=== PATIENT | female | born 1975 | race Caucasian/White ===

== ENCOUNTER 2017-12-13 08:51 | Emergency (ER) | payer BC ==
[~2017-12-13] VITALS: Ht 165.1 cm; Wt 69.8 kg
[2017-12-13 09:02] VITALS: TEMP 36.6
[2017-12-13] MEDS ORDERED: MISCCAP80 PO (09:20)
[2017-12-13] MEDS ORDERED: SYN25 PO (09:20)
[2017-12-13] MEDS ORDERED: CALC-388 PO (09:20)
[2017-12-13] MEDS ORDERED: DICY10CA55 PO (09:20)
[2017-12-13] MEDS ORDERED: VENL150C56 PO (09:20)
[2017-12-13] MEDS ORDERED: CHOL1CAP67 PO (09:20)
[2017-12-13] MEDS ORDERED: DPPI400 (09:20)
[2017-12-13] MEDS ORDERED: FIBE1CHW8 (09:20)
[2017-12-13 09:25] VITALS: O2SAT 99
[2017-12-13 09:39] LABS: BASO % 0.3 %; BASO ABS # 0.02 K/uL (0-0.2); EOS % 1.6 %; HEMATOCRIT 39.9 % (37-47); HEMOGLOBIN 13.8 g/dL (12.0-16.0); IG# 0.01 K/uL (0.00-0.02); LYMPH % 26.4 %; MEAN CELL VOLUME 89.9 fL (80-100); MEAN CORPUSCULAR HEMOGLOBIN 31.1 pg (25-34); MEAN CORPUSCULAR HGB CONC 34.6 g/dl (32-36); MEAN PLATELET VOLUME 9.4 fL (7.4-10.4); MONO % 4.5 %; MONO ABS # 0.29 K/uL (0.11-0.59); NEUT ABS # 4.33 K/uL (1.4-6.5); PLATELET COUNT 227 K/uL (130-400); RED CELL DISTRIBUTION WIDTH CV 12.6 % (11.5-14.5); RED CELL DISTRIBUTION WIDTH SD 41.5 fL (36.4-46.3); WHITE BLOOD COUNT 6.45 K/uL (4.8-10.8)
[2017-12-13 09:57] LABS: ALBUMIN 4.2 gm/dl (3.4-5.0); ALT/SGPT 47 U/L (12-78); AST/SGOT 33 U/L (15-37); BLOOD UREA NITROGEN 12 mg/dl (7-18); CALCIUM 8.4 mg/dl (8.5-10.1); CARBON DIOXIDE 28 mmol/L (21-32); CREATININE 0.95 mg/dl (0.60-1.20); GLUCOSE 99 mg/dl (70-99); POTASSIUM 3.3 mmol/L (3.5-5.1); SODIUM 136 mmol/L (136-145)
[2017-12-13 09:58] LABS: PTT PATIENT 21.4 SECONDS (21.0-31.0)
[2017-12-13 10:08] LABS: ALKALINE PHOSPHATASE 49 U/L (45-117); LIPASE 140 U/L (73-393); TOTAL PROTEIN 7.6 gm/dl (6.4-8.2)
[2017-12-13 10:12] VITALS: Ht 165.1 cm; Wt 69.8 kg
[2017-12-13 13:16] VITALS: BP 116/79; PULSE 77; O2SAT 97
--- NOTE | 2017-12-13 16:25 | EMERGENCY ROOM VISIT NOTE ---
History Report prepared by Samara: Venita Louis Under the Supervision of: Dr. Jasbir Mullen M.D. First contact with patient: 09:16 Chief Complaint: DIZZY Stated Complaint: high/low blood pressure, dizziness, weakness,lowHR Nursing Triage Summary: Pt was at work when she got really dizzy and diaphoretic. Checked BP which was elevated and then really low. Hands and feet are tingly. Dizziness has resolved. No hx vertigo. Thinks it is a reaction to bentyl of which she has taken 4 doses but never experienced this before. History of Present Illness The patient is a 42 year old female who presents to the Emergency Room with complaints of an episode of dizziness [employer]. The patient was standing at work when she suddenly started feeling dizzy. Her blood pressure was high then low. She felt nauseous, diaphoretic, and faint. This lasted for 10 minutes. She has never experienced this before. She reports some tingling in the fingers and toes. She feels normal now besides being fatigued. The patient was started on Bentyl in the past week for ongoing GI issues over the past year. She has been diagnosed with a gluten and dairy sensitivity. She took Bentyl this morning. She did not eat breakfast this morning. She has a minor headache and notes that she was crying. Her blood pressure is typically in the 110s. Pt denies LOC, fevers, chills, visual changes, neck pain, chest pain, breathing difficulties, vomiting, abdominal pain, back pain, melena, hematochezia, urinary symptoms, numbness, weakness, lymphadenopathy, rash, or other complaints. Source of History: patient Onset: [employer] Position: head Quality: other (dizziness) Timing: other (episodic) Associated Symptoms: + diaphoresis, + nausea, + fatigue Note: Pt reports change in blood pressure, feeling faint, tingling in fingers and toes. Review of Systems See HPI for pertinent positives and negatives. A total of ten systems were reviewed and were otherwise negative. Past Medical & Surgical Medical Problems: (1) Hypothyroidism Family History Cancer Diabetes mellitus Heart disease Hypertension Social History Smoking Status: Never Smoker Alcohol Use: other (minimal) Housing Status: lives with family Occupation Status: employed Current/Historical Medications Scheduled Calcium Carbonate-Vitamin D (Calcium + D3 600-200 mg-Unit), 1 TAB PO DAILY Cholecalciferol (Vitamin D-3), 1,000 UNIT PO DAILY Dicyclomine Hcl (Bentyl), 10 MG PO TID Levothyroxine Sodium (Synthroid), 25 MCG PO DAILY Probiotic Product (Probiotic), 1 CAP PO DAILY Venlafaxine Hcl (Effexor Extended Rel), 150 MG PO DAILY Miscellaneous Medications Fiber (Fiber Adult Gummies 2 gm) Medroxyprogesterone Acetate (Depo-Provera) Allergies Coded Allergies: Amoxicillin (Unverified Allergy, Unknown, hives, 12/13/17) Metronidazole (Unverified Allergy, Unknown, unknown, 12/13/17) Acetaminophen (Unverified Adverse Reaction, Unknown, dizzyiness, 12/13/17) Propoxyphene (Unverified Adverse Reaction, Unknown, dizzyiness, 12/13/17) Physical Exam Vital Signs Date Time Temp Pulse Resp B/P (MAP) Pulse Ox O2 Delivery O2 Flow Rate FiO2 12/13/17 13:16 77 15 116/79 97 Room Air 12/13/17 11:51 81 15 116/75 100 Room Air 12/13/17 10:12 60 16 109/57 98 Room Air 88 99/71 74 114/78 12/13/17 09:37 76 12/13/17 09:25 99 Room Air 12/13/17 09:02 36.6 66 18 105/75 99 Room Air Physical Exam GENERAL: Awake, alert, well-appearing, in no distress HENT: Normocephalic, atraumatic. Oropharynx unremarkable. EYES: Normal conjunctiva. Sclera non-icteric. NECK: Supple. No nuchal rigidity. FROM. No masses. RESPIRATORY: Clear to auscultation. No wheezes. No rales. Normal respiratory effort. CARDIAC: Normal rate. Normal rhythm. No murmurs. No rubs. Extremities warm and well perfused. Pulses equal. No JVD. GI: Soft, non-distended. No tenderness to palpation. No rebound or guarding. No masses. RECTAL: Deferred. MUSCULOSKELETAL: Atraumatic. Chest examination reveals no tenderness. The back is symmetrical on inspection without obvious abnormality. There is no CVA tenderness to palpation. No joint edema. LOWER EXTREMITIES: Calves are equal size bilaterally and non-tender. No edema. No discoloration. NEURO: Normal sensorium. No sensory or motor deficits noted. SKIN: No rash or jaundice noted. Medical Decision & Procedures Laboratory Results 12/13/17 09:25 Red Blood Count 4.44, Mean Corpuscular Volume 89.9, Mean Corpuscular Hemoglobin 31.1, Mean Corpuscular Hemoglobin Concent 34.6, Mean Platelet Volume 9.4, Neutrophils (%) (Auto) 67.0, Lymphocytes (%) (Auto) 26.4, Monocytes (%) (Auto) 4.5, Eosinophils (%) (Auto) 1.6, Basophils (%) (Auto) 0.3, Neutrophils # (Auto) 4.33, Lymphocytes # (Auto) 1.70, Monocytes # (Auto) 0.29, Eosinophils # (Auto) 0.10, Basophils # (Auto) 0.02 12/13/17 09:25 Test 12/13/17 09:25 12/13/17 11:57 White Blood Count 6.45 K/uL (4.8-10.8) Red Blood Count 4.44 M/uL (4.2-5.4) Hemoglobin 13.8 g/dL (12.0-16.0) Hematocrit 39.9 % (37-47) Mean Corpuscular Volume 89.9 fL (80-100) Mean Corpuscular Hemoglobin 31.1 pg (25-34) Mean Corpuscular Hemoglobin Concent 34.6 g/dl (32-36) Platelet Count 227 K/uL (130-400) Mean Platelet Volume 9.4 fL (7.4-10.4) Neutrophils (%) (Auto) 67.0 % Lymphocytes (%) (Auto) 26.4 % Monocytes (%) (Auto) 4.5 % Eosinophils (%) (Auto) 1.6 % Basophils (%) (Auto) 0.3 % Neutrophils # (Auto) 4.33 K/uL (1.4-6.5) Lymphocytes # (Auto) 1.70 K/uL (1.2-3.4) Monocytes # (Auto) 0.29 K/uL (0.11-0.59) Eosinophils # (Auto) 0.10 K/uL (0-0.5) Basophils # (Auto) 0.02 K/uL (0-0.2) RDW Standard Deviation 41.5 fL (36.4-46.3) RDW Coefficient of Variation 12.6 % (11.5-14.5) Immature Granulocyte % (Auto) 0.2 % Immature Granulocyte # (Auto) 0.01 K/uL (0.00-0.02) Prothrombin Time 10.9 SECONDS (9.0-12.0) Prothromb Time International Ratio 1.0 (0.9-1.1) Activated Partial Thromboplast Time 21.4 SECONDS (21.0-31.0) Partial Thromboplastin Ratio 0.8 Anion Gap 4.0 mmol/L (3-11) Est Creatinine Clear Calc Drug Dose 74.2 ml/min Estimated GFR () 84.4 Estimated GFR (Non- 72.8 BUN/Creatinine Ratio 12.8 (10-20) Calcium Level 8.4 mg/dl (8.5-10.1) Magnesium Level 2.0 mg/dl (1.8-2.4) Total Bilirubin 0.9 mg/dl (0.2-1) Direct Bilirubin 0.2 mg/dl (0-0.2) Aspartate Amino Transf (AST/SGOT) 33 U/L (15-37) Alanine Aminotransferase (ALT/SGPT) 47 U/L (12-78) Alkaline Phosphatase 49 U/L (45-117) Troponin I < 0.015 ng/ml (0-0.045) Total Protein 7.6 gm/dl (6.4-8.2) Albumin 4.2 gm/dl (3.4-5.0) Lipase 140 U/L (73-393) Thyroid Stimulating Hormone (TSH) 3.220 uIu/ml (0.300-4.500) Human Chorionic Gonadotropin, Qual NEG (NEG) Urine Color YELLOW Urine Appearance CLOUDY (CLEAR) Urine pH 7.0 (4.5-7.5) Urine Specific [place] 1.010 (1.000-1.030) Urine Protein NEG (NEG) Urine Glucose (UA) NEG (NEG) Urine Ketones NEG (NEG) Urine Occult Blood NEG (NEG) Urine Nitrite NEG (NEG) Urine Bilirubin NEG (NEG) Urine Urobilinogen NEG (NEG) Urine Leukocyte Esterase NEG (NEG) Urine WBC (Auto) 1-5 /hpf (0-5) Urine RBC (Auto) 0-4 /hpf (0-4) Urine Hyaline Casts (Auto) 1-5 /lpf (0-5) Urine Epithelial Cells (Auto) >30 /lpf (0-5) Urine Bacteria (Auto) NEG (NEG) Laboratory results reviewed by me ECG Per My Interpretation Indication: syncope (near) Rate (beats per minute): 61 Rhythm: normal sinus Findings: no acute ischemic change, no ectopy, other (normal intervals) ED Course 0958: The patient was evaluated in room B8. A complete history and physical exam was performed. 1250: I reevaluated the patient. Discussed results and discharge instructions: She verbalized understanding and agreement. The patient is ready for discharge. Medical Decision Prior records/ancillary studies reviewed. Triage Nursing notes reviewed and agree them. The patient's history was concerning for dizziness and near sink. Differential diagnosis: Etiologies such as medication side effect, vasovagal event, benign positional vertigo, tumor, infection, hypoglycemia, electrolyte abnormalities, cardiac sources, intracerebral event, toxicologic, neurologic, as well as others were entertained. Physical examination: As above. No pathologic nystagmus. Nonfocal. Benign abdomen. ER treatment provided: No medication given at the patient's symptoms resolved. Oral hydration without difficulty. On reassessment the patient felt well. Diagnostics interpretation by me: ECG: Normal sinus rhythm without ischemic change or evidence of dysrhythmia. The labs revealed a normal CBC and chemistry panel. Urinalysis unremarkable. The patient is doing quite well. She had an episode that lasted about 10 minutes. It sounds consistent with vasovagal type event. She may have had some side effects from her new prescription of Bentyl. I asked for her to refrain from this medication for a few days and then to use it only as needed. If she has recurrent symptoms that she needs to stop and follow-up with GI. She agreed. She felt well. She never had any chest or abdominal pains. By the evaluation outlined above emergent etiologies such as infection, hypoglycemia, electrolyte abnormalities, cardiac sources, intracerebral event, toxicologic, neurologic,as well as others were deemed relatively unlikely. The patient will informed about the findings as listed above. All questions were answered and she will pleased with the treatment. Return instructions were outlined and the patient was discharged in stable condition. Referral: The patient was referred back to her primary care physician for follow-up for a recheck of the current condition. Medication Reconcilliation Current Medication List: was personally reviewed by me Blood Pressure Screening Patient's blood pressure: Normal blood pressure Blood pressure disposition: Did not require urgent referral Impression Primary Impression: Dizziness Additional Impressions: Nausea Near syncope Scribe Attestation The scribe's documentation has been prepared under my direction and personally reviewed by me in its entirety. I confirm that the note above accurately reflects all work, treatment, procedures, and medical decision making performed by me. Departure Information Dispostion Home / Self-Care Referrals Chris Ayala M.D. (PCP) Forms HOME CARE DOCUMENTATION FORM, IMPORTANT VISIT INFORMATION Patient Instructions My [facility] Additional Instructions Acetaminophen(Tylenol) may be used for fever or pain. Use 1000mg every six hours as needed. Avoid using more than 4000mg in a 24 hour period. Rest and drink plenty of fluids as tolerated. Hold on the Bentyl for the next 2-3 days. Gradually restart on an as-needed basis with a maximum of 3 times daily. Continue other current medications. Return to the ER for passing out, chest pain, headache, persistent vomiting, fevers, abdominal pain, chest pains, difficulty breathing, black or bloody stools, worsening of your condition, or as needed. Follow up with your primary physician in 2-3 days for a recheck of your current condition Problem Qualifiers
== END 2017-12-13 13:22 | disposition home or self-care (01) ==
LOC: C.EDB 08:57
DX: R42 Dizziness and giddiness (principal); R11.0 Nausea; R55 Syncope and collapse; E03.9 Hypothyroidism, unspecified; Z83.3 Family history of diabetes mellitus; Z82.49 Family history of ischemic heart disease and other diseases of the circulatory system